=== PATIENT | male | born 1965 | race Caucasian/White ===

== ENCOUNTER 2021-06-25 11:25 | Day surgery (SDC) | payer BC ==
[~2021-06-25] VITALS: Ht 177.8 cm; Wt 92.2 kg
[~2021-06-25 11:25] MED LIST: Mobic15 MG
--- NOTE | 2021-06-25 15:00 | NUR ---
06/25/21 1500 [employer] RECTAL POLYP UN-RETRIEVED. DR. ACOSTA.
== END 2021-06-25 15:02 | disposition home or self-care (01) ==
LOC: ORSCSDS 11:25
DX: Z12.11 Encounter for screening for malignant neoplasm of colon (principal); D12.0 Benign neoplasm of cecum; D12.2 Benign neoplasm of ascending colon; D37.5 Neoplasm of uncertain behavior of rectum; K21.9 Gastro-esophageal reflux disease without esophagitis; Z87.891 Personal history of nicotine dependence; E66.9 Obesity, unspecified; Z68.30 Body mass index [BMI] 30.0-30.9, adult
CPT/HCPCS: 88305; J2704; J7120